=== PATIENT | female | born 1985 | race Caucasian/White ===

== ENCOUNTER 2024-01-20 09:36 | Inpatient (IN) | payer BC ==
[2024-01-20 13:05] LABS: Amphetamine,Urine NEGATIVE (NEGATIVE); Barbiturate,Urine NEGATIVE (NEGATIVE); Benzodiazepine,Urine NEGATIVE (NEGATIVE); Cocaine,Urine NEGATIVE (NEGATIVE); Methadone,Urine NEGATIVE (NEGATIVE); Opiate,Urine NEGATIVE (NEGATIVE); PCP,Urine NEGATIVE (NEGATIVE); THC,Urine NEGATIVE (NEGATIVE)
[2024-01-20 13:14] LABS: Absolute Neutrophil Ct (ANC) 15.83 x10^3/uL (1.4-6.9); BASOPHIL % 0.2 % (0.0-0.4); Basophil (Absolute #) 0.03 x10^3/uL (0-0.4); Eosinophil % 0.1 % (0.00-5.0); Eosinophil (Absolute #) 0.02 x10^3/uL (0-0.5); Hematocrit 38.4 % (35-47); Hemoglobin 12.6 g/dL (12.0-16.0); IMMATURE GRAN # 0.08 x10^3u/L (0.00-0.03); IMMATURE GRAN % 0.4 % (0.00-0.4); Lymphocyte (Absolute #) 1.29 x10^3/uL (1.0-4.6); Lymphocytes % 7.1 % (24.0-44.0); Mean Cell Volume 89.9 fL (78-100); Mean Corpuscular Hemoglobin 29.5 pg (26-32); Mean Corpuscular Hgb Concent. 32.8 g/dL (32-36); Mean Platelet Volume 11.6 fL (7.5-11.0); Monocyte (Absolute #) 1.02 x10^3/uL (0.0-1.3); Monocytes % 5.6 % (0.0-12.0); Neutrophil % 86.6 % (36.0-66.0); Platelet Count 259 x10^3/uL (150-450); Red Blood Count 4.27 x10^6/uL (4.1-5.4); White Blood Count 18.3 x10^3/uL (4.0-10.5)
[2024-01-20 14:22] LABS: ABO TYPING A; Antibody Screen NEGATIVE (NEGATIVE); RH TYPING POSITIVE
[2024-01-20] MEDS: STADOL 2 MG IV PRN ×2 (15:17→17:19)
[2024-01-20] MEDS: Lactated Ringers 1,000 ML IV SCH (17:02)
[2024-01-20] MEDS: OMNIPEN 2 GM*** 2 G in Sodium Chloride 100ML MINI-BAG PLUS 100 ML IV ONE (17:02)
[2024-01-20] MEDS ORDERED: Ephedrine Sulfate 50 MG/ML IV PRN (18:18)
[2024-01-20] MEDS: Lactated Ringers 1,000 ML IV ONE (19:04)
[2024-01-20] MEDS: OMNIPEN 1 GM*** 1 GM in Sodium Chloride 100ML MINI-BAG PLUS 100 ML IV SCH (21:16)
[2024-01-20] MEDS ORDERED: Zofran 4 MG/2 ML VIAL ONE (21:34)
[2024-01-20] MEDS: Zofran 4 MG/2 ML VIAL IV PRN (21:46)
[2024-01-21] MEDS: Tums EX 750 MG PO PRN (01:18)
[2024-01-21] MEDS ORDERED: BRETHINE 1 MG/ML SQ PRN (03:04)
[2024-01-21] MEDS: PITOCIN 30 UNITS/ LR 500 ML 30 UNITS/500 ML PLAST..BAG IV SCH (03:52)
[2024-01-21] MEDS: FENTANYL 2 MCG-BUPIV 0.125%-NS 250 ML Epidur 250 ML EPIDURAL SCH (10:13)
[2024-01-21] MEDS: XYLOCAINE 1% HCL 20 ML MDV IJ PRN (10:25)
[2024-01-21] MEDS ORDERED: Adenocard IV 6 MG/2 ML IV ONE ×2 (11:58→12:01)
[2024-01-21 12:03] LABS: Absolute Neutrophil Ct (ANC) 21.79 x10^3/uL (1.4-6.9); BASOPHIL % 0.2 % (0.0-0.4); Basophil (Absolute #) 0.05 x10^3/uL (0-0.4); Eosinophil (Absolute #) 0 x10^3/uL (0-0.5); Hematocrit 29.9 % (35-47); IMMATURE GRAN # 0.16 x10^3u/L (0.00-0.03); IMMATURE GRAN % 0.6 % (0.00-0.4); Lymphocyte (Absolute #) 1.63 x10^3/uL (1.0-4.6); Lymphocytes % 6.5 % (24.0-44.0); Mean Cell Volume 92.6 fL (78-100); Mean Corpuscular Hemoglobin 29.4 pg (26-32); Mean Corpuscular Hgb Concent. 31.8 g/dL (32-36); Mean Platelet Volume 11.5 fL (7.5-11.0); Monocyte (Absolute #) 1.28 x10^3/uL (0.0-1.3); Monocytes % 5.1 % (0.0-12.0); Neutrophil % 87.6 % (36.0-66.0); Platelet Count 249 x10^3/uL (150-450); Red Blood Count 3.23 x10^6/uL (4.1-5.4); Red Cell Distribution Width 15.2 % (11.5-14.0); White Blood Count 24.9 x10^3/uL (4.0-10.5)
[2024-01-21 12:10] LABS: Hemoglobin 9.5 g/dL (12.0-16.0)
[2024-01-21 12:12] LABS: ALBUMIN 3.2 g/dL (3.5-5.0); BILIRUBIN,TOTAL 0.6 mg/dL (0.2-1.3); Calcium 8.7 mg/dL (8.4-10.2); Creatinine 1 0.55 mg/dL (0.52-1.04); EST GLOMERULAR FILTRATION RATE 121.8 ML/MIN; MAGNESIUM 1.5 mg/dL (1.6-2.3); Potassium 3.7 mmol/L (3.5-5.1); Total Protein 6.3 g/dL (6.3-8.2)
[2024-01-21 12:18] LABS: ANION GAP 11.7 MEQ/L (5-15)
[2024-01-21 13:29] LABS: CROSS MATCH (PRBC) COMPATIBLE (COMPATIBLE)
[2024-01-21 13:31] LABS: CROSS MATCH (PRBC) COMPATIBLE (COMPATIBLE)
[2024-01-21] MEDS: TYLENOL EXTRA STRENGTH 500 MG PO PRN (14:15)
[2024-01-21] MEDS ORDERED: Mylicon 80MG PO PRN (15:12)
[2024-01-21 16:23] LABS: Slide Review 1 YES
[2024-01-21] MEDS: MOTRIN 400 MG PO PRN (17:57)
[2024-01-21 21:03] LABS: Hematocrit 30.3 % (35-47); Mean Cell Volume 90.7 fL (78-100); Mean Corpuscular Hemoglobin 29.9 pg (26-32); Mean Platelet Volume 11.2 fL (7.5-11.0); Platelet Count 211 x10^3/uL (150-450); Red Blood Count 3.34 x10^6/uL (4.1-5.4); Red Cell Distribution Width 14.9 % (11.5-14.0)
[2024-01-21] MEDS: Docusate Sodium 100 MG PO SCH (21:38)
[2024-01-21] MEDS: LANSINOH 40 GM TOP PRN (22:28)
[2024-01-21] MEDS: Dermoplast Spray TP PRN (22:28)
[2024-01-21] MEDS: TUCKS TP PRN (22:28)
[2024-01-22 05:15] LABS: Absolute Neutrophil Ct (ANC) 10.23 x10^3/uL (1.4-6.9); BASOPHIL % 0.3 % (0.0-0.4); Basophil (Absolute #) 0.04 x10^3/uL (0-0.4); Eosinophil % 1.6 % (0.00-5.0); Eosinophil (Absolute #) 0.22 x10^3/uL (0-0.5); Hematocrit 29.2 % (35-47); Hemoglobin 9.8 g/dL (12.0-16.0); IMMATURE GRAN # 0.09 x10^3u/L (0.00-0.03); IMMATURE GRAN % 0.7 % (0.00-0.4); Lymphocyte (Absolute #) 2.29 x10^3/uL (1.0-4.6); Lymphocytes % 16.6 % (24.0-44.0); Mean Cell Volume 90.1 fL (78-100); Mean Corpuscular Hemoglobin 30.2 pg (26-32); Mean Corpuscular Hgb Concent. 33.6 g/dL (32-36); Mean Platelet Volume 10.9 fL (7.5-11.0); Monocyte (Absolute #) 0.96 x10^3/uL (0.0-1.3); Monocytes % 6.9 % (0.0-12.0); Neutrophil % 73.9 % (36.0-66.0); Platelet Count 208 x10^3/uL (150-450); Red Blood Count 3.24 x10^6/uL (4.1-5.4); Red Cell Distribution Width 14.9 % (11.5-14.0); White Blood Count 13.8 x10^3/uL (4.0-10.5)
[2024-01-22] MEDS: Sodium Chloride 0.9% 500 ML 500 ML IV SCH (06:32)
[2024-01-22] MEDS: PITOCIN 30 UNITS/ LR 500 ML 30 UNITS/500 ML PLAST..BAG IV SCH (06:33)
[2024-01-22 11:10] LABS: Absolute Neutrophil Ct (ANC) 9.86 x10^3/uL (1.4-6.9); BASOPHIL % 0.2 % (0.0-0.4); Basophil (Absolute #) 0.02 x10^3/uL (0-0.4); Eosinophil % 1.3 % (0.00-5.0); Eosinophil (Absolute #) 0.16 x10^3/uL (0-0.5); Hematocrit 29.7 % (35-47); Hemoglobin 9.8 g/dL (12.0-16.0); IMMATURE GRAN # 0.09 x10^3u/L (0.00-0.03); IMMATURE GRAN % 0.7 % (0.00-0.4); Lymphocyte (Absolute #) 1.84 x10^3/uL (1.0-4.6); Lymphocytes % 14.5 % (24.0-44.0); Mean Cell Volume 90.3 fL (78-100); Mean Corpuscular Hemoglobin 29.8 pg (26-32); Mean Platelet Volume 10.6 fL (7.5-11.0); Monocyte (Absolute #) 0.75 x10^3/uL (0.0-1.3); Monocytes % 5.9 % (0.0-12.0); Neutrophil % 77.4 % (36.0-66.0); Platelet Count 216 x10^3/uL (150-450); Red Blood Count 3.29 x10^6/uL (4.1-5.4); Red Cell Distribution Width 15.1 % (11.5-14.0); White Blood Count 12.7 x10^3/uL (4.0-10.5)
[2024-01-22 11:23] LABS: ANION GAP 7.6 MEQ/L (5-15); BILIRUBIN,TOTAL 0.3 mg/dL (0.2-1.3); Calcium 8.5 mg/dL (8.4-10.2); Creatinine 1 0.6 mg/dL (0.52-1.04); EST GLOMERULAR FILTRATION RATE 119.2 ML/MIN; MAGNESIUM 1.5 mg/dL (1.6-2.3); Potassium 3.6 mmol/L (3.5-5.1); Total Protein 6.2 g/dL (6.3-8.2)
--- NOTE | 2024-01-22 11:27 | XRAY ---
Indication: Tachycardia. Comparison: None Portable apical lordotic chest inflated and clear. Heart not enlarged for AP portable technique. Bony thorax intact. Impression: Nonacute chest.
[2024-01-22] MEDS: FERREX 150 PO SCH (11:28)
[2024-01-22] MEDS: Lactated Ringers 1,000 ML IV SCH (19:39)
[2024-01-23 08:23] LABS: RPR Non Reactive (Non Reactive)
--- NOTE | 2024-01-23 11:32 | ECHO ---
DATE OF PROCEDURE: 01/22/2024 PROCEDURE: Complete two-dimensional echocardiogram with color Doppler and Spectral analysis. INDICATION: Tachycardia, . DESCRIPTION OF FINDINGS: The left ventricle is normal size with mild concentric left ventricular hypertrophy. Normal left ventricle ejection fraction of 50 to 55%. The right ventricle is normal size and normal systolic function. The left atrium is normal size. The right atrium is normal size. Inferior vena cava is normal with complete intravascular collapse with inspiration suggestive of intravascular volume depletion. The aortic valve is trileaflet and opens well. There is no aortic stenosis or aortic regurgitation. The mitral valve is morphologically normal. There is trace mitral regurgitation. The tricuspid valve leaflets are thin and pliable. There is trace tricuspid regurgitation. Unable to estimate right ventricular systolic pressure due to inadequate tricuspid regurgitant signal. The pulmonic valve is not well visualized. There is trace pulmonic regurgitation. The aortic root is normal diameter. No pericardial effusion. IMPRESSION: 1) NORMAL LEFT VENTRICULAR SIZE WITH MILD CONCENTRIC LEFT VENTRICULAR HYPERTROPHY. 2) NORMAL LEFT VENTRICULAR SYSTOLIC FUNCTION WITH EJECTION FRACTION 50 TO 55%. 3) NORMAL RIGHT VENTRICULAR SIZE AND SYSTOLIC FUNCTION. 4) TRACE MITRAL REGURGITATION. 5) TRACE TRICUSPID REGURGITATION. UNABLE TO ESTIMATE RIGHT VENTRICULAR SYSTOLIC PRESSURE DUE TO INADEQUATE TRICUSPID REGURGITANT SIGNAL. 6) TRACE PULMONIC REGURGITATION. 7) NORMAL IVC SIZE WITH COMPLETE COLLAPSE WITH INSPIRATION SUGGESTIVE OF INTRAVASCULAR VOLUME DEPLETION. 8) NO PERICARDIAL EFFUSION.
--- NOTE | 2024-01-23 11:49 | PCM.NOTE ---
Date and Time: 01/23/24 1145 Subjective Assessment: patient notes she feels more like herself today, she has no chest pain or dyspnea. she did have an episode of lightheadedness yesterday with ambulation and heart rate was in the 120-130 range per nursing. labs were repeated and hemoglobin was stable at 9.8 telecardiology consult pending due to emergency y ester but Dr Dsouza read echo with normal EF and no valvular disease, IVC collapse noted suggesting hypovelmia so patient is currently being hydrated with LR. she has voided multiple times overnight and notes her urine is getting more clear. pain is controlled and she notes her lochia is getting less and is mild at this point. Objective Exam General Appearance: no apparent distress Neurologic Exam: alert, oriented x 3 Respiratory Exam: normal breath sounds, lungs clear, No respiratory distress Gastrointestinal/Abdomen Exam: soft, No tenderness, No mass Extremity Exam: normal inspection, normal range of motion Objective Data Vital Signs: Vital Signs - 24 hr Temp Pulse Resp BP Pulse Ox 01/23/24 01:24 98.7 F 83 18 129/82 97 01/22/24 20:38 98.9 F 100 H 20 119/74 96 01/22/24 20:00 97.6 F 89 18 130/83 97 01/22/24 14:00 97.6 F 89 18 130/83 97 Pain Assessment - Last Documented Pain Intensity [Lower] 5 Pain Intensity 3 Pain Scale Used 0-10 Pain Scale Intake and Output: Intake & Output 01/20/24 01/21/24 01/22/24 01/23/24 11:59 11:59 11:59 11:59 Intake Total 3952 1100 3148 Output Total 850 1150 1950 Balance 3102 -50 1198 Weight 83.915 kg Lab Results: Lab Results-Last 24 Hours 01/20/24 Range/Units 13:07 RPR Non Reactive (Non Reactive) Radiology Exams: Radiology Procedures Category Date Time Status CHEST 1 VIEW (PORTABLE) Stat Exams 01/22/24 10:56 Completed ECHO W/2D AND DOPPLER [US] Routine Exams 01/22/24 12:01 Draft Assessment/Plan (1) Vaginal delivery Current Visit: Yes Status: Acute Code(s): O80 - ENCOUNTER FOR FULL-TERM UNCOMPLICATED DELIVERY (2) hemorrhage Current Visit: Yes Status: Acute Code(s): O72.1 - OTHER IMMEDIATE HEMORRHAGE (3) SVT (supraventricular tachycardia) Current Visit: Yes Status: Acute Assessment & Plan: appears to have been precipitated by volume loss, was given 2 units of blood and h/h is stable. Code(s): I47.10 - SUPRAVENTRICULAR TACHYCARDIA, UNSPECIFIED (4) Sinus tachycardia Current Visit: Yes Status: Acute Assessment & Plan: continue LR @125mL/hr due to echo findings per Dr Dsouza, will keep an additional day and complete cardiology consult. my hope is that she will tolerate activity and with hydration her heart rate will improve further. might consider beta john or calcium channel john low dose if heart rate issues cause symptoms Code(s): R00.0 - TACHYCARDIA, UNSPECIFIED
--- NOTE | 2024-01-23 15:17 | CONS ---
TELECARDIOLOGY CONSULT DATE: 01/22/2024 REASON FOR TELECARDIOLOGY CONSULT: Supraventricular tachycardia. HISTORY: Lori Mooney 38-year-old woman who was admitted for and delivery. She underwent delivery on 01/21/2024 and was noted to have significant bleeding. Approximately three hours after delivery, she developed acute onset of narrow complex tachycardia with heart rate in the 160's, this spontaneously resolved. She was found to have a significantly reduced hemoglobin and has been transfused several units of blood. Hemoglobin is now stable at 10. Echocardiogram yesterday demonstrated preserved ejection fraction with no significant valvular abnormalities and fully collapsing IVC suggesting intravascular volume depletion. She received IV hydration overnight and hemoglobin has remained stable, and heart rate has improved. She has not had any recurrent episodes of supraventricular tachycardia. ECG demonstrated sinus tachycardia with no ischemic changes. PAST MEDICAL HISTORY: No significant past medical history. PHYSICAL EXAMINATION: Physical exam as noted on tele-video conferencing. She is in no acute distress. She is resting comfortably in bed, able to speak in full sentences. Her daughter is in her room and is doing well. LAB DATA AND TESTS: Laboratory data reviewed. Hemoglobin remained stable around 10 after transfusion and additional IV hydration. ECG reviewed as noted above. Echocardiogram personally reviewed and results as noted above. IMPRESSION: Paroxysmal nonsustained supraventricular tachycardia in the setting of hemorrhage and intravascular volume depletion, which has improved with blood transfusion and IV hydration. RECOMMENDATIONS: Will continue oral hydration. Once this last bag of IV fluid is completed, will stop IV hydration and continue oral hydration. No indication for further cardiac testing at this time. I will plan to see the patient in my office in four to six weeks. The office will reach out to the patient to make that appointment.
[2024-01-24 02:35] VITALS: O2SAT 97
[2024-01-24 05:22] LABS: Absolute Neutrophil Ct (ANC) 9.98 x10^3/uL (1.4-6.9); BASOPHIL % 0.3 % (0.0-0.4); Basophil (Absolute #) 0.04 x10^3/uL (0-0.4); Eosinophil % 2.5 % (0.00-5.0); Eosinophil (Absolute #) 0.34 x10^3/uL (0-0.5); Hematocrit 32.3 % (35-47); Hemoglobin 10.6 g/dL (12.0-16.0); IMMATURE GRAN % 0.7 % (0.00-0.4); Lymphocyte (Absolute #) 2.37 x10^3/uL (1.0-4.6); Lymphocytes % 17.4 % (24.0-44.0); Mean Corpuscular Hemoglobin 29.9 pg (26-32); Mean Corpuscular Hgb Concent. 32.8 g/dL (32-36); Mean Platelet Volume 10.9 fL (7.5-11.0); Monocytes % 5.9 % (0.0-12.0); Neutrophil % 73.2 % (36.0-66.0); Platelet Count 293 x10^3/uL (150-450); Red Blood Count 3.55 x10^6/uL (4.1-5.4); Red Cell Distribution Width 14.9 % (11.5-14.0); White Blood Count 13.6 x10^3/uL (4.0-10.5)
[2024-01-24 06:04] LABS: ALBUMIN 3.4 g/dL (3.5-5.0); ANION GAP 10.4 MEQ/L (5-15); BILIRUBIN,TOTAL 0.2 mg/dL (0.2-1.3); Calcium 8.7 mg/dL (8.4-10.2); Creatinine 1 0.56 mg/dL (0.52-1.04); EST GLOMERULAR FILTRATION RATE 121.2 ML/MIN; MAGNESIUM 1.8 mg/dL (1.6-2.3); Total Protein 6.7 g/dL (6.3-8.2)
--- NOTE | 2024-01-24 09:04 | PCM.DS ---
Discharge Summary Date of Admission: 01/20/24 12:52 Admitting Physician: CHEO WADDELL Consults: Consults on Case 01/21/24 16:43 Navigation ONCE 01/22/24 11:04 Consult Cardiology ROUTINE Primary Care Provider: CHEO WADDELL Allergies Allergies No Known Drug Allergies Allergy (Unverified 01/21/24 00:21) Hospital Summary - Hospital Course Hospital Course: patient had vaginal delivery with hemorrhage that precipitated a run of SVT, received adenosine 6mg IV x 1 then converted, was given 2 units of packed red cells and hemoglobin is above 10 at time of disharge. had cardiology consult with normal echo and no changes, she is tolerated regular activity and doing well, . - Vitals & Intake/Output Vital Signs: Vital Signs Temperature 97.6 F 01/24/24 02:32 Pulse Rate 88 01/24/24 02:32 Respiratory Rate 18 01/24/24 02:32 Blood Pressure 138/93 01/24/24 02:32 O2 Sat by Pulse Oximetry 97 01/24/24 02:32 Intake & Output: Intake & Output 01/21/24 01/22/24 01/23/24 01/24/24 11:59 11:59 11:59 11:59 Intake Total 3952 1100 3148 4600 Output Total 850 1150 1950 3500 Balance 3102 -50 1198 1100 - Lab Result Diagrams: 01/24/24 04:34 01/24/24 04:34 Lab Results-Last 24 Hrs: Lab Results-Last 24 Hours 01/24/24 01/24/24 Range/Units 04:34 04:34 WBC 13.6 H (4.0-10.5) x10^3/uL RBC 3.55 L (4.1-5.4) x10^6/uL Hgb 10.6 L (12.0-16.0) g/dL Hct 32.3 L (35-47) % MCV 91.0 (78-100) fL MCH 29.9 (26-32) pg MCHC 32.8 (32-36) g/dL RDW 14.9 H (11.5-14.0) % Plt Count 293 D (150-450) x10^3/uL MPV 10.9 (7.5-11.0) fL Gran % 73.2 H (36.0-66.0) % Immature Gran % (Auto) 0.7 H (0.00-0.4) % Nucleat RBC Rel Count 0.0 (0.00-0.1) % Eos # (Auto) 0.34 (0-0.5) x10^3/uL Immature Gran # (Auto) 0.10 H (0.00-0.03) x10^3u/L Absolute Lymphs (auto) 2.37 (1.0-4.6) x10^3/uL Absolute Monos (auto) 0.80 (0.0-1.3) x10^3/uL Absolute Nucleated RBC 0.00 (0.00-0.01) x10^3u/L Lymphocytes % 17.4 L (24.0-44.0) % Monocytes % 5.9 (0.0-12.0) % Eosinophils % 2.5 (0.00-5.0) % Basophils % 0.3 (0.0-0.4) % Absolute Granulocytes 9.98 H (1.4-6.9) x10^3/uL Basophils # 0.04 (0-0.4) x10^3/uL Sodium 137 (135-145) mmol/L Potassium 4.0 (3.5-5.1) mmol/L Chloride 109 H (98-107) mmol/L Carbon Dioxide 22 (22-30) mmol/L Anion Gap 10.4 (5-15) MEQ/L BUN 10 (7-17) mg/dL Creatinine 0.56 (0.52-1.04) mg/dL Estimated GFR 121.2 ML/MIN Glucose 81 (74-106) mg/dL Calcium 8.7 (8.4-10.2) mg/dL Magnesium 1.8 (1.6-2.3) mg/dL Total Bilirubin 0.20 (0.2-1.3) mg/dL AST 24 (14-36) U/L ALT 21 (0-35) U/L Alkaline Phosphatase 106 (38-126) U/L Serum Total Protein 6.7 (6.3-8.2) g/dL Albumin 3.4 L (3.5-5.0) g/dL Micro Results-Entire Visit: Microbiology 01/21/24 15:40 Urine Culture - Final Catherized NO GROWTH - Radiology Exams Ordered Rad Exams-Entire Visit: Radiology Procedures Category Date Time Status CHEST 1 VIEW (PORTABLE) Stat Exams 01/22/24 10:56 Completed ECHO W/2D AND DOPPLER [US] Routine Exams 01/22/24 12:01 Draft - Procedures and Test Procedures and Tests throughout Hospitalization: Therapy Orders & Screens 01/21/24 09:00 EKG ROUTINE Comment: Diagnosis: IUP 01/21/24 09:15 EKG ROUTINE Comment: Diagnosis: IUP 01/22/24 10:56 EKG STAT Comment: Diagnosis: IUP EKG Reason: Other Discharge Exam General Appearance: no apparent distress Neurologic Exam: alert, oriented x 3 Respiratory Exam: normal breath sounds, lungs clear, No respiratory distress Cardiovascular Exam: regular rate/rhythm, normal heart sounds Gastrointestinal/Abdomen Exam: soft, No tenderness, No mass Extremity Exam: normal inspection, normal range of motion Skin Exam: normal color, warm, dry Final Diagnosis/Problem List - Final Discharge Diagnosis/Problem (1) Vaginal delivery Current Visit: Yes Status: Acute Code(s): O80 - ENCOUNTER FOR FULL-TERM UNCOMPLICATED DELIVERY (2) hemorrhage Current Visit: Yes Status: Acute Code(s): O72.1 - OTHER IMMEDIATE HEMORRHAGE (3) SVT (supraventricular tachycardia) Current Visit: Yes Status: Acute Code(s): I47.10 - SUPRAVENTRICULAR TACHYCARDIA, UNSPECIFIED (4) Sinus tachycardia Current Visit: Yes Status: Acute Code(s): R00.0 - TACHYCARDIA, UNSPECIFIED - Discharge Disposition: Home, Self-Care Condition: Stable Prescriptions: New Docusate Sodium 100 mg [Docusate Sodium 100 MG] 100 mg PO BID #60 cap Ferrous Sulfate 325 mg [Feosol 325 mg] 325 mg PO DAILY #30 tablet Follow up with: JESSICA EAST MD [CONSULTING PHYSICIAN] - CHEO WADDELL MD [Primary Care Provider] - 1 Week
[2024-01-24 10:35] VITALS: TEMP 98.2
[2024-01-24 11:52] VITALS: BP 110/69; PULSE 92; RESP 18
== END 2024-01-24 16:00 | disposition home or self-care (01) | DRG 806 ==
LOC: OB 09:36 → OBSVTOIN 12:52
PROVIDERS: ADMIT Family Medicine; ATTEND Family Medicine
PROC: 10E0XZZ Delivery of Products of Conception, External Approach (ICD-10-PCS; principal; 2024-01-21)
PROC: 0KQM0ZZ Repair Perineum Muscle, Open Approach (ICD-10-PCS; 2024-01-21)
DX: O70.1 Second degree perineal laceration during delivery (principal); I47.10 Supraventricular tachycardia, unspecified; Z37.0 Single live birth; O72.1 Other immediate postpartum hemorrhage; Z3A.40 40 weeks gestation of pregnancy
CPT/HCPCS: 36415; 36430; 71045; 80053; 80307; 83735; 84443; 85025; 85027; 86592; 86850; 86900; 86901; 86922; 87086; 93005; 93012; 93306; 94799; J0153; J0290; J0595; J2405; J2590; P9016; Q3014; A9270-GY

== ENCOUNTER 2024-02-08 13:14 | Observation (INO) | payer BC ==
[2024-02-08] MEDS ORDERED: Sodium Chloride 0.9% 1000 ML 2,000 ML ONE (13:24)
[2024-02-08] MEDS: Sodium Chloride 0.9% 1000 ML 1,000 ML IV STA (13:28)
[2024-02-08 13:33] LABS: Absolute Neutrophil Ct (ANC) 6.04 x10^3/uL (1.56-6.13); BASOPHIL % 0.5 % (0.1-1.2); Basophil (Absolute #) 0.05 x10^3/uL (0.01-0.08); Eosinophil % 3.3 % (0.7-5.8); Eosinophil (Absolute #) 0.35 x10^3/uL (0.04-0.36); Hematocrit 33.5 % (34.1-44.9); Hemoglobin 10.7 g/dL (11.2-15.7); IMMATURE GRAN # 0.04 x10^3u/L (0.001-0.031); IMMATURE GRAN % 0.4 % (0.001-0.429); Lymphocytes % 31.5 % (19.3-51.7); Mean Cell Volume 93.1 fL (79.4-94.8); Mean Corpuscular Hemoglobin 29.7 pg (25.6-32.2); Mean Corpuscular Hgb Concent. 31.9 g/dL (32.2-35.5); Mean Platelet Volume 9.7 fL (9.4-12.3); Monocyte (Absolute #) 0.69 x10^3/uL (0.24-0.86); Monocytes % 6.6 % (4.7-12.5); Neutrophil % 57.7 % (34.0-71.1); Platelet Count 488 x10^3/uL (182-369); Red Cell Distribution Width 13.8 % (11.7-14.4); White Blood Count 10.5 x10^3/uL (3.98-10.04)
[2024-02-08] MEDS: Sodium Chloride 0.9% 1000 ML 1,000 ML IV SCH (13:34)
[2024-02-08] MEDS ORDERED: Adenocard IV 6 MG/2 ML IV ONE (13:37)
[2024-02-08 13:46] LABS: ALBUMIN 3.8 g/dL (3.5-5.0); ANION GAP 15.7 MEQ/L (5-15); BILIRUBIN,TOTAL 0.3 mg/dL (0.2-1.3); Creatinine 1 0.76 mg/dL (0.52-1.04); EST GLOMERULAR FILTRATION RATE 104.1 ML/MIN; Potassium 4.3 mmol/L (3.5-5.1); Total Protein 6.6 g/dL (6.3-8.2)
[2024-02-08 13:49] LABS: INR 0.95 (0.8-3.0); PROTIME 10.4 SECONDS (9.4-12.5)
--- NOTE | 2024-02-08 13:49 | ERPHSYRPT ---
- History of Present Illness Time Seen by Provider: 02/08/24 13:19 Source: patient, family Exam Limitations: no limitations Patient Subjective Stated Complaint: C/O heavy vaginal bleeing since 11:30 today. Denies pain. Triage Nursing Assessment: Patient ambulated back to ER with bright red bleeding soaking through her clothing and dripping into the floor. She is alert and oriented. No SOB. She is diaphoretic. Pale. Pants removed with several large clots noted in clothing and in the floor. OB staff called to assist in room. Physician History: 38 years old day 18 presented in the ER with sudden worsening vaginal bleeding with passing of multiple big clots since 11:30 AM today. Patient reports gush of blood after every few minutes. She complains of lower abdominal/pelvic minimal discomfort. Feeling weak fatigued tired diaphoretic and pale looking. Not taking any blood thinners. Patient went into SVT immediate after delivery on January 21, 2024. Allergies/Adverse Reactions: No Known Drug Allergies Allergy (Verified 02/08/24 13:16) Home Medications: Pnv 119/Iron Fum/Folic Acid [ 19 Tablet] 1 tab PO DAILY 02/08/24 [History] Hx Tetanus, Diphtheria Vaccination/Date Given: Yes Travel Risk - International Travel Have you traveled outside of the country in past 3 weeks: No - Emerging Infectious Disease Are you exhibiting symptoms associated with any current EIDs: No - Review of Systems Constitutional: Fatigue, Weakness Eyes: No Symptoms Respiratory: No Symptoms Cardiac: Palpitations Abdominal/Gastrointestinal: No Symptoms Genitourinary Symptoms: Vaginal Bleeding Musculoskeletal: No Symptoms Neurological: Dizziness Psychological: No Symptoms Endocrine: No Symptoms Immunological/Allergic: No Symptoms - Past Medical History Pertinent Past Medical History: Yes Musculoskeletal History: Fibromyalgia Other Medical History: Scoliosis, Patient reports going into SVT at the beginning of January several hours after delivery of baby. - Past Surgical History Other Surgical History: [place] teeth - Female History Hx Now: No - Social History Smoking Status: Never smoker Exposure to second hand smoke: No Drug Use: none - Social Determinants of Health Will the patient participate in the screening: Yes Do you worry about a steady place to live?: No Do you have any problems with any of the following?: No known problems In the past 12 months,have you had to go without utilities?: No Transportation Issues: No Has anyone in your support network made you feel unsafe?: No Have you or anyone in your house had to go without enough: No - Nursing Vital Signs Nursing Vital Signs: Initial Vital Signs Temperature 98.4 F 02/08/24 13:17 Pulse Rate 112 H 02/08/24 13:17 Respiratory Rate 19 02/08/24 13:17 Blood Pressure 108/75 02/08/24 13:17 O2 Sat by Pulse Oximetry 99 02/08/24 13:17 Pain Scale Pain Intensity 0 - Physical Exam General Appearance: mild distress Eye Exam: PERRL/EOMI Ears, Nose, Throat Exam: normal ENT inspection Neck Exam: normal inspection, full range of motion Respiratory Exam: normal breath sounds, lungs clear Cardiovascular Exam: normal heart sounds, tachycardia Gastrointestinal/Abdomen Exam: soft, normal bowel sounds, No tenderness Back Exam: normal inspection, normal range of motion Extremity Exam: normal inspection, normal range of motion Neurologic Exam: alert, oriented x 3, cooperative, varnish finisher II-XII nml as tested Skin Exam: normal color SpO2: 99 - Course EKG Interpreted by Me: RATE, Sinus Rhythm, NORMAL AXIS, NORMAL INTERVALS, NORMAL QRS Ordered Tests: Active Orders 24 hr Category Date Time Status IV Insertion STAT Care 02/08/24 13:16 Active NPO (ED) STAT Care 02/08/24 13:16 Active PELVIS TRANS VAGINAL [US] Stat Exams 02/08/24 13:18 Ordered CBC W DIFF Stat Lab 02/08/24 13:25 Completed CMP Stat Lab 02/08/24 13:25 Received PT INR [PROTIME WITH INR] Stat Lab 02/08/24 13:25 Received PTT Stat Lab 02/08/24 13:25 Received UA W/RFX UR CULTURE Stat Lab 02/08/24 13:17 Ordered Medication Summary Generic Name Dose Route Start Last Admin Trade Name Freq PRN Reason Stop Dose Admin Sodium Chloride 1,000 mls @ 999 mls/hr 02/08/24 13:16 02/08/24 13:28 Sodium Chloride 0.9% 1000 Ml IV 02/08/24 14:16 999 mls/hr .Q1H1M STA Administration Sodium Chloride 1,000 mls @ 999 mls/hr 02/08/24 13:45 02/08/24 13:34 Sodium Chloride 0.9% 1000 Ml IV 02/08/24 14:00 999 mls/hr .Q1H1M DENIS Administration Discontinued Medications Generic Name Dose Route Start Last Admin Trade Name Ernestina PRN Reason Stop Dose Admin Sodium Chloride Confirm 02/08/24 13:24 Sodium Chloride 0.9% 1000 Ml Administered 02/08/24 13:25 Dose 2,000 mls @ ud .ROUTE .STK-MED ONE Lab/Rad Data: Laboratory Result Diagrams 02/08/24 13:25 Laboratory Results 02/08/24 Range/Units 13:25 WBC 10.5 H (3.98-10.04) x10^3/uL RBC 3.60 L (3.93-5.22) x10^6/uL Hgb 10.7 L (11.2-15.7) g/dL Hct 33.5 L (34.1-44.9) % MCV 93.1 (79.4-94.8) fL MCH 29.7 (25.6-32.2) pg MCHC 31.9 L (32.2-35.5) g/dL RDW 13.8 (11.7-14.4) % Plt Count 488 H (182-369) x10^3/uL MPV 9.7 (9.4-12.3) fL Gran % 57.7 (34.0-71.1) % Immature Gran % (Auto) 0.4 (0.001-0.429) % Nucleat RBC Rel Count 0.0 (0.00-0.2) % Eos # (Auto) 0.35 (0.04-0.36) x10^3/uL Immature Gran # (Auto) 0.04 H (0.001-0.031) x10^3u/L Absolute Lymphs (auto) 3.30 (1.18-3.74) x10^3/uL Absolute Monos (auto) 0.69 (0.24-0.86) x10^3/uL Absolute Nucleated RBC 0.00 (0.00-0.012) x10^3u/L Lymphocytes % 31.5 (19.3-51.7) % Monocytes % 6.6 (4.7-12.5) % Eosinophils % 3.3 (0.7-5.8) % Basophils % 0.5 (0.1-1.2) % Absolute Granulocytes 6.04 (1.56-6.13) x10^3/uL Basophils # 0.05 (0.01-0.08) x10^3/uL - Progress Progress: re-examined Air Movement: fair Progress Note: 02/08/24 13:49 38 years old is evaluated for worsening vaginal bleeding since 11:30 AM today. Patient had multiple clots while in the ER. She was lightheaded, diaphoretic and pale, blood pressure dropped to 50 systolic and placed in Trendelenburg position, given 2 boluses of fluids. Type and crossmatch. Initial hemoglobin is 10.7. Discussed with Dr. Glaser [employer] on-call, reviewed history, workup and he is aware of the fact that patient did have SVT immediate . He has seen patient in the ER and would be taken to the OR. Plan discussed with patient and family who understand and agree. Discussed with patient and family about transfusions, went over risk and benefits and they agreed to go ahead with that if needed. Patient had a brief episode of SVT with heart rate in 190s, adenosine was ordered but before patient received it converted back to sinus rhythm with Valsalva. 02/08/24 13:52 Blood Culture(s) Obtained: No Antibiotics given: No Discussed with Dr.: Leighann Will see patient in: ED Counseled pt/family regarding: lab results, diagnosis, need for follow-up Medical Desision Making - Independent Historian Additional History obtained from: Spouse - Discussion of managment Care discussed with:: specialist (Dr. Glaser ;[id number]) Agreed on:: Treatment plan Will see patient: in ED - Diagnostic Testing Diagnostic test were ordered, analyzed, and reviewed by me: Yes - Risk of complications The pt has a mod risk of morbidity or mortality based on: Need for prescription drug management - Departure Departure Disposition: Release to OR/SDC Clinical Impression: hemorrhage, Hypotension, SVT (supraventricular tachycardia) Condition: Serious Critical Care Time: Yes Critical Care Time(excluding separately billable procedures): Critical 30-74 mins Referrals: CHEO WADDELL MD [Primary Care Provider] - Follow up/PCP as directed
[2024-02-08] MEDS ORDERED: Zofran 4 MG/2 ML VIAL ONE (14:17)
[2024-02-08] MEDS ORDERED: ROCURONIUM BROMIDE IV ONE (14:17)
[2024-02-08] MEDS ORDERED: BRIDION 200MG/2ML IV ONE (14:17)
[2024-02-08] MEDS ORDERED: DIPRIVAN 200 MG/20 ML IV ONE (14:17)
[2024-02-08] MEDS ORDERED: KEFZOL 1 GM ONE (14:17)
[2024-02-08] MEDS ORDERED: Decadron 4 MG INJ ONE (14:17)
[2024-02-08] MEDS ORDERED: Quelicin Fliptop 200 MG/10 ML ONE (14:17)
[2024-02-08 14:34] LABS: ABO TYPING A; Antibody Screen NEGATIVE (NEGATIVE); RH TYPING POSITIVE
[2024-02-08 14:35] LABS: CROSS MATCH (PRBC) COMPATIBLE (COMPATIBLE)
[2024-02-08 14:36] LABS: CROSS MATCH (PRBC) COMPATIBLE (COMPATIBLE)
[2024-02-08 14:50] LABS: Appearance Cloudy (Clear); Bilirubin Moderate (Negative); Blood Large (Negative); Ketones 15 (Negative); Leukocyte Esterase Large (Negative); Nitrite Positive (Negative); Protein,Urine Dip 300 (Negative); Specific Gravity 1.015 (1.005-1.030)
[2024-02-08 14:51] LABS: Glucose, Urine Negative (Negative)
[2024-02-08 14:54] LABS: ADD URINE CULTURE? YES (NO); Bacteria Few /HPF (None Seen); Epithelial Cells Rare /HPF (None Seen); RBC >100 /HPF (0-5)
[2024-02-08 15:13] LABS: BASOPHIL % 0.3 % (0.1-1.2); Basophil (Absolute #) 0.07 x10^3/uL (0.01-0.08); Eosinophil % 1.4 % (0.7-5.8); Hematocrit 28.3 % (34.1-44.9); Hemoglobin 9.3 g/dL (11.2-15.7); IMMATURE GRAN # 0.11 x10^3u/L (0.001-0.031); IMMATURE GRAN % 0.5 % (0.001-0.429); Lymphocyte (Absolute #) 2.24 x10^3/uL (1.18-3.74); Lymphocytes % 10.3 % (19.3-51.7); Mean Cell Volume 93.1 fL (79.4-94.8); Mean Corpuscular Hemoglobin 30.6 pg (25.6-32.2); Mean Corpuscular Hgb Concent. 32.9 g/dL (32.2-35.5); Mean Platelet Volume 10.1 fL (9.4-12.3); Monocyte (Absolute #) 1.13 x10^3/uL (0.24-0.86); Monocytes % 5.2 % (4.7-12.5); Neutrophil % 82.3 % (34.0-71.1); Platelet Count 428 x10^3/uL (182-369); Red Blood Count 3.04 x10^6/uL (3.93-5.22); Red Cell Distribution Width 13.9 % (11.7-14.4); White Blood Count 21.7 x10^3/uL (3.98-10.04)
[2024-02-08] MEDS ORDERED: SUBLIMAZE 100 MCG/2 ML ONE (15:16)
[2024-02-08] MEDS: Lactated Ringers 1,000 ML IV SCH (17:16)
[2024-02-08] MEDS ORDERED: TYLENOL 325 MG ONE (17:27)
[2024-02-08] MEDS: TYLENOL 325 MG PO PRN (17:29)
[2024-02-08] MEDS ORDERED: Zofran 4 MG/2 ML VIAL IV PRN (19:40)
[2024-02-08 20:02] LABS: Absolute Neutrophil Ct (ANC) 18.63 x10^3/uL (1.56-6.13); BASOPHIL % 0.2 % (0.1-1.2); Basophil (Absolute #) 0.04 x10^3/uL (0.01-0.08); Eosinophil (Absolute #) 0 x10^3/uL (0.04-0.36); Hemoglobin 9.5 g/dL (11.2-15.7); IMMATURE GRAN # 0.08 x10^3u/L (0.001-0.031); IMMATURE GRAN % 0.4 % (0.001-0.429); Lymphocyte (Absolute #) 1.12 x10^3/uL (1.18-3.74); Lymphocytes % 5.3 % (19.3-51.7); Mean Cell Volume 96.6 fL (79.4-94.8); Mean Corpuscular Hemoglobin 29.6 pg (25.6-32.2); Mean Corpuscular Hgb Concent. 30.6 g/dL (32.2-35.5); Mean Platelet Volume 9.9 fL (9.4-12.3); Monocyte (Absolute #) 1.28 x10^3/uL (0.24-0.86); Monocytes % 6.1 % (4.7-12.5); Platelet Count 403 x10^3/uL (182-369); Red Blood Count 3.21 x10^6/uL (3.93-5.22); White Blood Count 21.2 x10^3/uL (3.98-10.04)
[2024-02-08 21:12] VITALS: RESP 20
[2024-02-08] MEDS: ROCEPHIN 1 GM / 100 ML NaCl 1 GM/100 ML IVPB IV SCH (22:58)
[2024-02-09] MEDS: MOTRIN 400 MG PO PRN (00:31)
[2024-02-09 05:24] LABS: Hematocrit 23.7 % (34.1-44.9); Hemoglobin 7.7 g/dL (11.2-15.7); Mean Cell Volume 92.6 fL (79.4-94.8); Mean Corpuscular Hemoglobin 30.1 pg (25.6-32.2); Mean Corpuscular Hgb Concent. 32.5 g/dL (32.2-35.5); Mean Platelet Volume 9.7 fL (9.4-12.3); Platelet Count 338 x10^3/uL (182-369); Red Blood Count 2.56 x10^6/uL (3.93-5.22); Red Cell Distribution Width 13.9 % (11.7-14.4)
[2024-02-09 05:53] LABS: ALBUMIN 3.4 g/dL (3.5-5.0); ANION GAP 11.9 MEQ/L (5-15); BILIRUBIN,TOTAL 0.3 mg/dL (0.2-1.3); Calcium 8.3 mg/dL (8.4-10.2); Creatinine 1 0.69 mg/dL (0.52-1.04); EST GLOMERULAR FILTRATION RATE 115.3 ML/MIN; Potassium 3.8 mmol/L (3.5-5.1)
--- NOTE | 2024-02-09 07:30 | PCM.HP ---
History of Present Illness - Chief Complaint Chief Complaint: HEMORRHAGE History of Present Illness: is a 38 year old female. 38 yo sp approximately 3 wks ago co heavy vaginal bleeding that began yesterday afternoon requiring her to go to er. pt was noted being hypotensive in ER and had an episode of SVT that resolved. pt did experience heavy vaginal bleeding after delivery which required blood transfusion. pt had been feeling very well up until yesterday with her bleeding episode. Medications & Allergies Home Medications: Home Medication List Pnv 119/Iron Fum/Folic Acid [ 19 Tablet] 1 tab PO DAILY 02/08/24 [History Confirmed 02/08/24] Allergies/Adverse Reactions: Allergies Allergy/AdvReac Type Severity Reaction Status Date / Time No Known Drug Allergies Allergy Verified 02/08/24 13:16 - Past Medical History Past Medical History: No Neurological History: No Pertinent History ENT History: No Pertinent History Cardiac History: Arrhythmia, Other Respiratory History: No Pertinent History Endocrine Medical History: No Pertinent History Musculoskelatal History: Fibromyalgia GI Medical History: No Pertinent History History: No Pertinent History Reproductive Disorders: No Pertinent History Comment: Scoliosis, Patient reports going into SVT at the beginning of January several hours after delivery of baby. - Female History Are you now?: No - Past Surgical History Past Surgical History: No Neuro Surgical History: No Pertinent History Cardiac History: No Pertinent History Respiratory Surgery: No Pertinent History GI Surgical History: No Pertinent History Genitourinary Surgical Hx: No Pertinent History Musculskeletal Surgical Hx: No Pertinent History Female Surgical History: Dilation & Curettage Other Surgical History: [place] teeth. D&C 02/08/24 HEMORRHAGE - Social History Smoking Status: Never smoker Exposure to second hand smoke: No Alcohol: None Drug Use: none - Social Determinants of Health Will the patient participate in the screening: Yes Do you worry about a steady place to live?: No Do you have any problems with any of the following?: No known problems In the past 12 months,have you had to go without utilities?: No Have you or anyone in your house had to go without enough: No Transportation Issues: No Has anyone in your support network made you feel unsafe?: No Does the patient want assistance with any of the above?: No - Physical Exam Vital Signs: Vital Signs - 24 hr Temp Pulse Resp BP BP BP Pulse Ox 02/09/24 04:00 99.1 F 103 H 20 120/69 100 02/09/24 00:00 97.9 F 103 H 20 114/66 97 02/08/24 20:26 98.5 F 109 H 20 98/64 99 02/08/24 19:00 98.0 F 103 H 18 107/60 100 02/08/24 18:02 98.7 F 95 H 20 117/77 98 02/08/24 17:45 98.2 F 104 H 20 107/62 100 02/08/24 16:45 98.7 F 95 H 20 117/77 98 02/08/24 14:49 97 H 16 116/71 02/08/24 13:52 99 02/08/24 13:50 98 H 112/73 100 02/08/24 13:45 107/78 100 02/08/24 13:40 87 16 103/73 103/73 100 02/08/24 13:39 87 16 103/73 99 02/08/24 13:35 77 16 84/54 84/54 98 02/08/24 13:31 74 18 73/42 73/42 100 02/08/24 13:30 71 16 52/34 52/34 94 L 02/08/24 13:24 64 80/54 100 02/08/24 13:17 98.4 F 112 H 19 108/75 99 Neurologic Exam: oriented x 3 Pelvic Exam: other (bleeding noted on perineum) Results - Labs Lab/Micro Results: Lab Results-Last 24 Hours 02/08/24 02/08/24 02/08/24 Range/Units 13:25 13:25 13:25 WBC 10.5 H (3.98-10.04) x10^3/uL RBC 3.60 L (3.93-5.22) x10^6/uL Hgb 10.7 L (11.2-15.7) g/dL Hct 33.5 L (34.1-44.9) % MCV 93.1 (79.4-94.8) fL MCH 29.7 (25.6-32.2) pg MCHC 31.9 L (32.2-35.5) g/dL RDW 13.8 (11.7-14.4) % Plt Count 488 H (182-369) x10^3/uL MPV 9.7 (9.4-12.3) fL Gran % 57.7 (34.0-71.1) % Immature Gran % (Auto) 0.4 (0.001-0.429) % Nucleat RBC Rel Count 0.0 (0.00-0.2) % Eos # (Auto) 0.35 (0.04-0.36) x10^3/uL Immature Gran # (Auto) 0.04 H (0.001-0.031) x10^3u/L Absolute Lymphs (auto) 3.30 (1.18-3.74) x10^3/uL Absolute Monos (auto) 0.69 (0.24-0.86) x10^3/uL Absolute Nucleated RBC 0.00 (0.00-0.012) x10^3u/L Lymphocytes % 31.5 (19.3-51.7) % Monocytes % 6.6 (4.7-12.5) % Eosinophils % 3.3 (0.7-5.8) % Basophils % 0.5 (0.1-1.2) % Absolute Granulocytes 6.04 (1.56-6.13) x10^3/uL Basophils # 0.05 (0.01-0.08) x10^3/uL PT (9.4-12.5) SECONDS INR (0.8-3.0) APTT (25.1-36.5) SECONDS Sodium 137 (135-145) mmol/L Potassium 4.3 (3.5-5.1) mmol/L Chloride 105 (98-107) mmol/L Carbon Dioxide 21 L (22-30) mmol/L Anion Gap 15.7 H (5-15) MEQ/L BUN 15 (7-17) mg/dL Creatinine 0.76 (0.52-1.04) mg/dL Estimated GFR 104.1 ML/MIN Glucose 150 H (74-106) mg/dL Calcium 9.0 (8.4-10.2) mg/dL Total Bilirubin 0.30 (0.2-1.3) mg/dL AST 20 (14-36) U/L ALT 18 (0-35) U/L Alkaline Phosphatase 88 (38-126) U/L Serum Total Protein 6.6 (6.3-8.2) g/dL Albumin 3.8 (3.5-5.0) g/dL Urine Color (Yellow) Urine Appearance (Clear) Urine pH (4.6-8.0) Ur Specific [place] (1.005-1.030) Urine Protein (Negative) Urine Glucose (UA) (Negative) mg/dL Urine Ketones (Negative) Urine Blood (Negative) Urine Nitrite (Negative) Urine Bilirubin (Negative) Urine Urobilinogen (0.2) mg/dL Ur Leukocyte Esterase (Negative) Urine Microscopic RBC (0-5) /HPF Urine Microscopic WBC (0-5) /HPF Ur Epithelial Cells (None Seen) /HPF Urine Bacteria (None Seen) /HPF Urine Culture Reflexed (NO) ABO Group A Rh Factor POSITIVE Antibody Screen NEGATIVE (NEGATIVE) Crossmatch COMPATIBLE (COMPATIBLE) 02/08/24 02/08/24 02/08/24 Range/Units 13:25 13:30 13:49 WBC (3.98-10.04) x10^3/uL RBC (3.93-5.22) x10^6/uL Hgb (11.2-15.7) g/dL Hct (34.1-44.9) % MCV (79.4-94.8) fL MCH (25.6-32.2) pg MCHC (32.2-35.5) g/dL RDW (11.7-14.4) % Plt Count (182-369) x10^3/uL MPV (9.4-12.3) fL Gran % (34.0-71.1) % Immature Gran % (Auto) (0.001-0.429) % Nucleat RBC Rel Count (0.00-0.2) % Eos # (Auto) (0.04-0.36) x10^3/uL Immature Gran # (Auto) (0.001-0.031) x10^3u/L Absolute Lymphs (auto) (1.18-3.74) x10^3/uL Absolute Monos (auto) (0.24-0.86) x10^3/uL Absolute Nucleated RBC (0.00-0.012) x10^3u/L Lymphocytes % (19.3-51.7) % Monocytes % (4.7-12.5) % Eosinophils % (0.7-5.8) % Basophils % (0.1-1.2) % Absolute Granulocytes (1.56-6.13) x10^3/uL Basophils # (0.01-0.08) x10^3/uL PT 10.4 (9.4-12.5) SECONDS INR 0.95 (0.8-3.0) APTT 24.0 L (25.1-36.5) SECONDS Sodium (135-145) mmol/L Potassium (3.5-5.1) mmol/L Chloride (98-107) mmol/L Carbon Dioxide (22-30) mmol/L Anion Gap (5-15) MEQ/L BUN (7-17) mg/dL Creatinine (0.52-1.04) mg/dL Estimated GFR ML/MIN Glucose (74-106) mg/dL Calcium (8.4-10.2) mg/dL Total Bilirubin (0.2-1.3) mg/dL AST (14-36) U/L ALT (0-35) U/L Alkaline Phosphatase (38-126) U/L Serum Total Protein (6.3-8.2) g/dL Albumin (3.5-5.0) g/dL Urine Color Red A (Yellow) Urine Appearance Cloudy A (Clear) Urine pH 7.0 (4.6-8.0) Ur Specific [place] 1.015 (1.005-1.030) Urine Protein 300 A (Negative) Urine Glucose (UA) Negative (Negative) mg/dL Urine Ketones 15 A (Negative) Urine Blood Large A (Negative) Urine Nitrite Positive A (Negative) Urine Bilirubin Moderate A (Negative) Urine Urobilinogen 1.0 A (0.2) mg/dL Ur Leukocyte Esterase Large A (Negative) Urine Microscopic RBC >100 A (0-5) /HPF Urine Microscopic WBC 3-5 (0-5) /HPF Ur Epithelial Cells Rare (None Seen) /HPF Urine Bacteria Few A (None Seen) /HPF Urine Culture Reflexed YES (NO) ABO Group Rh Factor Antibody Screen (NEGATIVE) Crossmatch COMPATIBLE (COMPATIBLE) 02/08/24 02/08/24 02/09/24 Range/Units 15:00 19:55 05:20 WBC 21.7 H 21.2 H 11.0 H (3.98-10.04) x10^3/uL RBC 3.04 L 3.21 L 2.56 L (3.93-5.22) x10^6/uL Hgb 9.3 L 9.5 L 7.7 L (11.2-15.7) g/dL Hct 28.3 L 31.0 L 23.7 L (34.1-44.9) % MCV 93.1 96.6 H 92.6 (79.4-94.8) fL MCH 30.6 29.6 30.1 (25.6-32.2) pg MCHC 32.9 30.6 L 32.5 (32.2-35.5) g/dL RDW 13.9 14.0 13.9 (11.7-14.4) % Plt Count 428 H 403 H 338 (182-369) x10^3/uL MPV 10.1 9.9 9.7 (9.4-12.3) fL Gran % 82.3 H 88.0 H (34.0-71.1) % Immature Gran % (Auto) 0.5 H 0.4 (0.001-0.429) % Nucleat RBC Rel Count 0.0 0.0 (0.00-0.2) % Eos # (Auto) 0.30 0 L (0.04-0.36) x10^3/uL Immature Gran # (Auto) 0.11 H 0.08 H (0.001-0.031) x10^3u/L Absolute Lymphs (auto) 2.24 1.12 L (1.18-3.74) x10^3/uL Absolute Monos (auto) 1.13 H 1.28 H (0.24-0.86) x10^3/uL Absolute Nucleated RBC 0.00 0.00 (0.00-0.012) x10^3u/L Lymphocytes % 10.3 L 5.3 L (19.3-51.7) % Monocytes % 5.2 6.1 (4.7-12.5) % Eosinophils % 1.4 0.0 L (0.7-5.8) % Basophils % 0.3 0.2 (0.1-1.2) % Absolute Granulocytes 17.80 H 18.63 H (1.56-6.13) x10^3/uL Basophils # 0.07 0.04 (0.01-0.08) x10^3/uL PT (9.4-12.5) SECONDS INR (0.8-3.0) APTT (25.1-36.5) SECONDS Sodium (135-145) mmol/L Potassium (3.5-5.1) mmol/L Chloride (98-107) mmol/L Carbon Dioxide (22-30) mmol/L Anion Gap (5-15) MEQ/L BUN (7-17) mg/dL Creatinine (0.52-1.04) mg/dL Estimated GFR ML/MIN Glucose (74-106) mg/dL Calcium (8.4-10.2) mg/dL Total Bilirubin (0.2-1.3) mg/dL AST (14-36) U/L ALT (0-35) U/L Alkaline Phosphatase (38-126) U/L Serum Total Protein (6.3-8.2) g/dL Albumin (3.5-5.0) g/dL Urine Color (Yellow) Urine Appearance (Clear) Urine pH (4.6-8.0) Ur Specific [place] (1.005-1.030) Urine Protein (Negative) Urine Glucose (UA) (Negative) mg/dL Urine Ketones (Negative) Urine Blood (Negative) Urine Nitrite (Negative) Urine Bilirubin (Negative) Urine Urobilinogen (0.2) mg/dL Ur Leukocyte Esterase (Negative) Urine Microscopic RBC (0-5) /HPF Urine Microscopic WBC (0-5) /HPF Ur Epithelial Cells (None Seen) /HPF Urine Bacteria (None Seen) /HPF Urine Culture Reflexed (NO) ABO Group Rh Factor Antibody Screen (NEGATIVE) Crossmatch (COMPATIBLE) 02/09/24 Range/Units 05:20 WBC (3.98-10.04) x10^3/uL RBC (3.93-5.22) x10^6/uL Hgb (11.2-15.7) g/dL Hct (34.1-44.9) % MCV (79.4-94.8) fL MCH (25.6-32.2) pg MCHC (32.2-35.5) g/dL RDW (11.7-14.4) % Plt Count (182-369) x10^3/uL MPV (9.4-12.3) fL Gran % (34.0-71.1) % Immature Gran % (Auto) (0.001-0.429) % Nucleat RBC Rel Count (0.00-0.2) % Eos # (Auto) (0.04-0.36) x10^3/uL Immature Gran # (Auto) (0.001-0.031) x10^3u/L Absolute Lymphs (auto) (1.18-3.74) x10^3/uL Absolute Monos (auto) (0.24-0.86) x10^3/uL Absolute Nucleated RBC (0.00-0.012) x10^3u/L Lymphocytes % (19.3-51.7) % Monocytes % (4.7-12.5) % Eosinophils % (0.7-5.8) % Basophils % (0.1-1.2) % Absolute Granulocytes (1.56-6.13) x10^3/uL Basophils # (0.01-0.08) x10^3/uL PT (9.4-12.5) SECONDS INR (0.8-3.0) APTT (25.1-36.5) SECONDS Sodium 138 (135-145) mmol/L Potassium 3.8 (3.5-5.1) mmol/L Chloride 107 (98-107) mmol/L Carbon Dioxide 23 (22-30) mmol/L Anion Gap 11.9 (5-15) MEQ/L BUN 12 (7-17) mg/dL Creatinine 0.69 (0.52-1.04) mg/dL Estimated GFR 115.3 ML/MIN Glucose 132 H (74-106) mg/dL Calcium 8.3 L (8.4-10.2) mg/dL Total Bilirubin 0.30 (0.2-1.3) mg/dL AST 22 (14-36) U/L ALT 19 (0-35) U/L Alkaline Phosphatase 77 (38-126) U/L Serum Total Protein 6.0 L (6.3-8.2) g/dL Albumin 3.4 L (3.5-5.0) g/dL Urine Color (Yellow) Urine Appearance (Clear) Urine pH (4.6-8.0) Ur Specific [place] (1.005-1.030) Urine Protein (Negative) Urine Glucose (UA) (Negative) mg/dL Urine Ketones (Negative) Urine Blood (Negative) Urine Nitrite (Negative) Urine Bilirubin (Negative) Urine Urobilinogen (0.2) mg/dL Ur Leukocyte Esterase (Negative) Urine Microscopic RBC (0-5) /HPF Urine Microscopic WBC (0-5) /HPF Ur Epithelial Cells (None Seen) /HPF Urine Bacteria (None Seen) /HPF Urine Culture Reflexed (NO) ABO Group Rh Factor Antibody Screen (NEGATIVE) Crossmatch (COMPATIBLE) - Other Procedures and Tests Respiratory Therapy 02/08/24 17:54 Incentive Spirometry UD Assessment/Plan (1) hemorrhage Current Visit: Yes Status: Acute Code(s): O72.1 - OTHER IMMEDIATE HEMORRHAGE (2) Retained placental fragment Current Visit: Yes Status: Acute Code(s): O72.0 - THIRD-STAGE HEMORRHAGE (3) anemia Current Visit: Yes Status: Acute Code(s): O90.81 - ANEMIA OF THE PUERPERIUM
--- NOTE | 2024-02-09 07:37 | PCM.DS ---
Discharge Summary Date of Admission: 02/08/24 14:49 Admitting Physician: VICENTE HILLS DO Primary Care Provider: CHEO WADDELL Allergies Allergies No Known Drug Allergies Allergy (Verified 02/08/24 13:16) Hospital Summary - Hospital Course Hospital Course: pt admitted on february 07 secondary to experiencing heavy vaginal bleeding that began yesterday afternoon and subsequently went to er and was noted being hypotensive secondary to heavy vaginal bleeding and was also noted having an episode of SVT that resolved. pt then underwent suction d&c and subsequently did well. pt had stable hgb postop at 9.5 and today was 7.7. pt currently with minimal vaiginal bleeding and was advised to take iron supplementation tid and augmentin 875mg bid 7 days for uti noted on ua. rx for augmentin to be sent to her pharmacy. pt was advised to fu with provider in 2 wks for evaluation. all questions answered to her satisfaction and at this time stable for discharge. - Vitals & Intake/Output Vital Signs: Vital Signs Temperature 99.1 F 02/09/24 04:00 Pulse Rate 103 H 02/09/24 04:00 Respiratory Rate 20 02/09/24 04:00 Blood Pressure 120/69 02/09/24 04:00 O2 Sat by Pulse Oximetry 100 02/09/24 04:00 Intake & Output: Intake & Output 02/06/24 02/07/24 02/08/24 02/09/24 11:59 11:59 11:59 11:59 Intake Total 3250 Output Total 2149 Balance 1101 Weight 74.843 kg - Lab Result Diagrams: 02/09/24 05:20 02/09/24 05:20 Lab Results-Last 24 Hrs: Lab Results-Last 24 Hours 02/08/24 02/08/24 02/08/24 Range/Units 13:25 13:25 13:25 WBC 10.5 H (3.98-10.04) x10^3/uL RBC 3.60 L (3.93-5.22) x10^6/uL Hgb 10.7 L (11.2-15.7) g/dL Hct 33.5 L (34.1-44.9) % MCV 93.1 (79.4-94.8) fL MCH 29.7 (25.6-32.2) pg MCHC 31.9 L (32.2-35.5) g/dL RDW 13.8 (11.7-14.4) % Plt Count 488 H (182-369) x10^3/uL MPV 9.7 (9.4-12.3) fL Gran % 57.7 (34.0-71.1) % Immature Gran % (Auto) 0.4 (0.001-0.429) % Nucleat RBC Rel Count 0.0 (0.00-0.2) % Eos # (Auto) 0.35 (0.04-0.36) x10^3/uL Immature Gran # (Auto) 0.04 H (0.001-0.031) x10^3u/L Absolute Lymphs (auto) 3.30 (1.18-3.74) x10^3/uL Absolute Monos (auto) 0.69 (0.24-0.86) x10^3/uL Absolute Nucleated RBC 0.00 (0.00-0.012) x10^3u/L Lymphocytes % 31.5 (19.3-51.7) % Monocytes % 6.6 (4.7-12.5) % Eosinophils % 3.3 (0.7-5.8) % Basophils % 0.5 (0.1-1.2) % Absolute Granulocytes 6.04 (1.56-6.13) x10^3/uL Basophils # 0.05 (0.01-0.08) x10^3/uL PT (9.4-12.5) SECONDS INR (0.8-3.0) APTT (25.1-36.5) SECONDS Sodium 137 (135-145) mmol/L Potassium 4.3 (3.5-5.1) mmol/L Chloride 105 (98-107) mmol/L Carbon Dioxide 21 L (22-30) mmol/L Anion Gap 15.7 H (5-15) MEQ/L BUN 15 (7-17) mg/dL Creatinine 0.76 (0.52-1.04) mg/dL Estimated GFR 104.1 ML/MIN Glucose 150 H (74-106) mg/dL Calcium 9.0 (8.4-10.2) mg/dL Total Bilirubin 0.30 (0.2-1.3) mg/dL AST 20 (14-36) U/L ALT 18 (0-35) U/L Alkaline Phosphatase 88 (38-126) U/L Serum Total Protein 6.6 (6.3-8.2) g/dL Albumin 3.8 (3.5-5.0) g/dL Urine Color (Yellow) Urine Appearance (Clear) Urine pH (4.6-8.0) Ur Specific [place] (1.005-1.030) Urine Protein (Negative) Urine Glucose (UA) (Negative) mg/dL Urine Ketones (Negative) Urine Blood (Negative) Urine Nitrite (Negative) Urine Bilirubin (Negative) Urine Urobilinogen (0.2) mg/dL Ur Leukocyte Esterase (Negative) Urine Microscopic RBC (0-5) /HPF Urine Microscopic WBC (0-5) /HPF Ur Epithelial Cells (None Seen) /HPF Urine Bacteria (None Seen) /HPF Urine Culture Reflexed (NO) ABO Group A Rh Factor POSITIVE Antibody Screen NEGATIVE (NEGATIVE) Crossmatch COMPATIBLE (COMPATIBLE) 02/08/24 02/08/24 02/08/24 Range/Units 13:25 13:30 13:49 WBC (3.98-10.04) x10^3/uL RBC (3.93-5.22) x10^6/uL Hgb (11.2-15.7) g/dL Hct (34.1-44.9) % MCV (79.4-94.8) fL MCH (25.6-32.2) pg MCHC (32.2-35.5) g/dL RDW (11.7-14.4) % Plt Count (182-369) x10^3/uL MPV (9.4-12.3) fL Gran % (34.0-71.1) % Immature Gran % (Auto) (0.001-0.429) % Nucleat RBC Rel Count (0.00-0.2) % Eos # (Auto) (0.04-0.36) x10^3/uL Immature Gran # (Auto) (0.001-0.031) x10^3u/L Absolute Lymphs (auto) (1.18-3.74) x10^3/uL Absolute Monos (auto) (0.24-0.86) x10^3/uL Absolute Nucleated RBC (0.00-0.012) x10^3u/L Lymphocytes % (19.3-51.7) % Monocytes % (4.7-12.5) % Eosinophils % (0.7-5.8) % Basophils % (0.1-1.2) % Absolute Granulocytes (1.56-6.13) x10^3/uL Basophils # (0.01-0.08) x10^3/uL PT 10.4 (9.4-12.5) SECONDS INR 0.95 (0.8-3.0) APTT 24.0 L (25.1-36.5) SECONDS Sodium (135-145) mmol/L Potassium (3.5-5.1) mmol/L Chloride (98-107) mmol/L Carbon Dioxide (22-30) mmol/L Anion Gap (5-15) MEQ/L BUN (7-17) mg/dL Creatinine (0.52-1.04) mg/dL Estimated GFR ML/MIN Glucose (74-106) mg/dL Calcium (8.4-10.2) mg/dL Total Bilirubin (0.2-1.3) mg/dL AST (14-36) U/L ALT (0-35) U/L Alkaline Phosphatase (38-126) U/L Serum Total Protein (6.3-8.2) g/dL Albumin (3.5-5.0) g/dL Urine Color Red A (Yellow) Urine Appearance Cloudy A (Clear) Urine pH 7.0 (4.6-8.0) Ur Specific [place] 1.015 (1.005-1.030) Urine Protein 300 A (Negative) Urine Glucose (UA) Negative (Negative) mg/dL Urine Ketones 15 A (Negative) Urine Blood Large A (Negative) Urine Nitrite Positive A (Negative) Urine Bilirubin Moderate A (Negative) Urine Urobilinogen 1.0 A (0.2) mg/dL Ur Leukocyte Esterase Large A (Negative) Urine Microscopic RBC >100 A (0-5) /HPF Urine Microscopic WBC 3-5 (0-5) /HPF Ur Epithelial Cells Rare (None Seen) /HPF Urine Bacteria Few A (None Seen) /HPF Urine Culture Reflexed YES (NO) ABO Group Rh Factor Antibody Screen (NEGATIVE) Crossmatch COMPATIBLE (COMPATIBLE) 02/08/24 02/08/24 02/09/24 Range/Units 15:00 19:55 05:20 WBC 21.7 H 21.2 H 11.0 H (3.98-10.04) x10^3/uL RBC 3.04 L 3.21 L 2.56 L (3.93-5.22) x10^6/uL Hgb 9.3 L 9.5 L 7.7 L (11.2-15.7) g/dL Hct 28.3 L 31.0 L 23.7 L (34.1-44.9) % MCV 93.1 96.6 H 92.6 (79.4-94.8) fL MCH 30.6 29.6 30.1 (25.6-32.2) pg MCHC 32.9 30.6 L 32.5 (32.2-35.5) g/dL RDW 13.9 14.0 13.9 (11.7-14.4) % Plt Count 428 H 403 H 338 (182-369) x10^3/uL MPV 10.1 9.9 9.7 (9.4-12.3) fL Gran % 82.3 H 88.0 H (34.0-71.1) % Immature Gran % (Auto) 0.5 H 0.4 (0.001-0.429) % Nucleat RBC Rel Count 0.0 0.0 (0.00-0.2) % Eos # (Auto) 0.30 0 L (0.04-0.36) x10^3/uL Immature Gran # (Auto) 0.11 H 0.08 H (0.001-0.031) x10^3u/L Absolute Lymphs (auto) 2.24 1.12 L (1.18-3.74) x10^3/uL Absolute Monos (auto) 1.13 H 1.28 H (0.24-0.86) x10^3/uL Absolute Nucleated RBC 0.00 0.00 (0.00-0.012) x10^3u/L Lymphocytes % 10.3 L 5.3 L (19.3-51.7) % Monocytes % 5.2 6.1 (4.7-12.5) % Eosinophils % 1.4 0.0 L (0.7-5.8) % Basophils % 0.3 0.2 (0.1-1.2) % Absolute Granulocytes 17.80 H 18.63 H (1.56-6.13) x10^3/uL Basophils # 0.07 0.04 (0.01-0.08) x10^3/uL PT (9.4-12.5) SECONDS INR (0.8-3.0) APTT (25.1-36.5) SECONDS Sodium (135-145) mmol/L Potassium (3.5-5.1) mmol/L Chloride (98-107) mmol/L Carbon Dioxide (22-30) mmol/L Anion Gap (5-15) MEQ/L BUN (7-17) mg/dL Creatinine (0.52-1.04) mg/dL Estimated GFR ML/MIN Glucose (74-106) mg/dL Calcium (8.4-10.2) mg/dL Total Bilirubin (0.2-1.3) mg/dL AST (14-36) U/L ALT (0-35) U/L Alkaline Phosphatase (38-126) U/L Serum Total Protein (6.3-8.2) g/dL Albumin (3.5-5.0) g/dL Urine Color (Yellow) Urine Appearance (Clear) Urine pH (4.6-8.0) Ur Specific [place] (1.005-1.030) Urine Protein (Negative) Urine Glucose (UA) (Negative) mg/dL Urine Ketones (Negative) Urine Blood (Negative) Urine Nitrite (Negative) Urine Bilirubin (Negative) Urine Urobilinogen (0.2) mg/dL Ur Leukocyte Esterase (Negative) Urine Microscopic RBC (0-5) /HPF Urine Microscopic WBC (0-5) /HPF Ur Epithelial Cells (None Seen) /HPF Urine Bacteria (None Seen) /HPF Urine Culture Reflexed (NO) ABO Group Rh Factor Antibody Screen (NEGATIVE) Crossmatch (COMPATIBLE) 02/09/24 Range/Units 05:20 WBC (3.98-10.04) x10^3/uL RBC (3.93-5.22) x10^6/uL Hgb (11.2-15.7) g/dL Hct (34.1-44.9) % MCV (79.4-94.8) fL MCH (25.6-32.2) pg MCHC (32.2-35.5) g/dL RDW (11.7-14.4) % Plt Count (182-369) x10^3/uL MPV (9.4-12.3) fL Gran % (34.0-71.1) % Immature Gran % (Auto) (0.001-0.429) % Nucleat RBC Rel Count (0.00-0.2) % Eos # (Auto) (0.04-0.36) x10^3/uL Immature Gran # (Auto) (0.001-0.031) x10^3u/L Absolute Lymphs (auto) (1.18-3.74) x10^3/uL Absolute Monos (auto) (0.24-0.86) x10^3/uL Absolute Nucleated RBC (0.00-0.012) x10^3u/L Lymphocytes % (19.3-51.7) % Monocytes % (4.7-12.5) % Eosinophils % (0.7-5.8) % Basophils % (0.1-1.2) % Absolute Granulocytes (1.56-6.13) x10^3/uL Basophils # (0.01-0.08) x10^3/uL PT (9.4-12.5) SECONDS INR (0.8-3.0) APTT (25.1-36.5) SECONDS Sodium 138 (135-145) mmol/L Potassium 3.8 (3.5-5.1) mmol/L Chloride 107 (98-107) mmol/L Carbon Dioxide 23 (22-30) mmol/L Anion Gap 11.9 (5-15) MEQ/L BUN 12 (7-17) mg/dL Creatinine 0.69 (0.52-1.04) mg/dL Estimated GFR 115.3 ML/MIN Glucose 132 H (74-106) mg/dL Calcium 8.3 L (8.4-10.2) mg/dL Total Bilirubin 0.30 (0.2-1.3) mg/dL AST 22 (14-36) U/L ALT 19 (0-35) U/L Alkaline Phosphatase 77 (38-126) U/L Serum Total Protein 6.0 L (6.3-8.2) g/dL Albumin 3.4 L (3.5-5.0) g/dL Urine Color (Yellow) Urine Appearance (Clear) Urine pH (4.6-8.0) Ur Specific [place] (1.005-1.030) Urine Protein (Negative) Urine Glucose (UA) (Negative) mg/dL Urine Ketones (Negative) Urine Blood (Negative) Urine Nitrite (Negative) Urine Bilirubin (Negative) Urine Urobilinogen (0.2) mg/dL Ur Leukocyte Esterase (Negative) Urine Microscopic RBC (0-5) /HPF Urine Microscopic WBC (0-5) /HPF Ur Epithelial Cells (None Seen) /HPF Urine Bacteria (None Seen) /HPF Urine Culture Reflexed (NO) ABO Group Rh Factor Antibody Screen (NEGATIVE) Crossmatch (COMPATIBLE) - Procedures and Test Procedures and Tests throughout Hospitalization: Therapy Orders & Screens 02/08/24 17:54 Incentive Spirometry UD Comment: Final Diagnosis/Problem List - Final Discharge Diagnosis/Problem (1) hemorrhage Current Visit: Yes Status: Acute Code(s): O72.1 - OTHER IMMEDIATE HEMORRHAGE (2) Retained placental fragment Current Visit: Yes Status: Acute Code(s): O72.0 - THIRD-STAGE HEMORRHAGE (3) anemia Current Visit: Yes Status: Acute Code(s): O90.81 - ANEMIA OF THE PUERPERIUM - Discharge Disposition: Home, Self-Care Condition: Stable Prescriptions: No Action Pnv 119/Iron Fum/Folic Acid [ 19 Tablet] 1 tab PO DAILY Follow up with: CHEO WADDELL MD [Primary Care Provider] - 2 weeks (should call for any issues that may arise augmentin to be called to her pharmacy advised to take iron suppplementation tid for the next month)
[2024-02-09 08:03] VITALS: BP 122/86; PULSE 100; TEMP 98.9; O2SAT 99
--- NOTE | 2024-02-11 10:37 | OP ---
SURGERY DATE/TIME: 02/08/2024 PREOPERATIVE DIAGNOSIS: hemorrhage. POSTOPERATIVE DIAGNOSIS: hemorrhage with retained tissue. PROCEDURE: Ultrasound and suction dilation and curettage. SURGEON: Lester Glaser MD HAIR DRESSER: Charlee ANESTHESIA: General. QUANTITATIVE BLOOD LOSS: 100 mL. COMPLICATIONS: None. FINDINGS: The risks, benefits, indications and alternatives of the procedure were reviewed with the patient prior to the procedure. Patient understood the risk of infection, bleeding, bowel injury, bladder injury, uterine perforation, pelvic infection, thromboembolic disorder associated with the surgery and desires to have this surgery as a possible means to alleviate her current medical condition. Patient had delivered approximately 3 weeks prior to coming to the emergency room and was noted having a very heavy episode of vaginal bleeding upon arrival to the emergency room where she became hypotensive with an episode of SVT which resolved. However, due to hypotension and severe vaginal bleeding noted in the emergency room, was called upon for evaluation and treatment. Patient was then taken to the operating room at this time where the patient had an ultrasound indicating clotting within the endometrial lining and questionable retained tissue. DESCRIPTION OF PROCEDURE AND FINDINGS: From this point, patient was then taken under general anesthesia, placed in the dorsal lithotomy position, prepped and draped in the usual sterile fashion. A weighted speculum was then placed in patient's vagina and the anterior lip of the cervix was grasped with a single-tooth tenaculum. Patient was then dilated with endocervical dilators and a #12 suction Vacurette was then placed into the fundus of the uterus and suction machine was turned on, retrieving a mild to moderate amount of tissue as well as clots. At this point, the Vacurette was then removed and the curette was then placed into the fundus and uterus and curettage was performed in all quadrants of the uterus, removing the remaining tissue and clots. From this point, hemostasis was obtained. At this point, all instruments were removed from the patient's vaginal region. The patient was then taken out of the dorsal lithotomy, was taken out of anesthesia and was then taken to the recovery room in stable condition. All instruments and laps were accounted for x2.
== END 2024-02-09 09:35 | disposition home or self-care (01) ==
LOC: ED 13:14 → OB 14:49 → UNDOADMOB 14:49 → UNDODISOB 02-09 09:35
PROVIDERS: ADMIT Obstetrics & Gynecology; ATTEND Obstetrics & Gynecology
DX: O72.1 Other immediate postpartum hemorrhage (principal); O72.0 Third-stage hemorrhage; O90.81 Anemia of the puerperium; I95.9 Hypotension, unspecified
CPT/HCPCS: 36000; 36415; 51702; 58120; 80053; 81001; 85025; 85027; 85610; 85730; 86850; 86900; 86901; 86922; 87086; 99284; 99291; G0378; J0153; J0330; J0690; J0696; J1100; J2405; J2704; J3010; A9270-GY